=== PATIENT | female | born 1975 ===

== ENCOUNTER 2024-05-07 06:15 | Day surgery (SDC) | payer BC, SELFPAY | END 2024-05-07 09:39 | disposition home or self-care (01) | LOC: GI 06:15 | PROVIDERS: ATTENDING PHYSICIAN Internal Medicine Gastroenterology | DX: K29.50 Unspecified chronic gastritis without bleeding (principal); K31.7 Polyp of stomach and duodenum; K31.89 Other diseases of stomach and duodenum; R13.14 Dysphagia, pharyngoesophageal phase | CPT/HCPCS: 43239; 88305; 88342 ==